=== PATIENT | female | born 1990 | race African-American/Black ===

== ENCOUNTER 2017-02-06 17:13 | Emergency (ER) | payer OTHER ==
[~2017-02-06] VITALS: Ht 165.1 cm; Wt 94.0 kg
[~2017-02-06 17:13] MED LIST: PREN-88 PO
[2017-02-06] MEDS ORDERED: KETOROLAC 60MG/2ML VIAL IM ONE (18:30)
[2017-02-06] MEDS ORDERED: ACETAMINOPHEN 500MG TABLET PO ONE (18:30)
[2017-02-06] MEDS ORDERED: DEXAMETHASONE 10MG/ML 1ML VIAL IM ONE (18:30)
[2017-02-06 19:52] VITALS: BP 120/76
== END 2017-02-06 20:15 | disposition home or self-care (01) ==
LOC: ER 17:13
DX: J02.8 Acute pharyngitis due to other specified organisms (principal); B96.89 Other specified bacterial agents as the cause of diseases classified elsewhere; B30.9 Viral conjunctivitis, unspecified; Z88.0 Allergy status to penicillin
CPT/HCPCS: 81025; 96372; 99284; J1100; J1885; Z7610

== ENCOUNTER 2017-05-28 15:20 | Emergency (ER) | payer OTHER ==
[~2017-05-28] VITALS: Ht 165.1 cm; Wt 86.0 kg
[2017-05-28 18:49] VITALS: BP 120/60
== END 2017-05-28 19:00 | disposition home or self-care (01) ==
LOC: ER 16:06
DX: J06.9 Acute upper respiratory infection, unspecified (principal); Z88.0 Allergy status to penicillin
CPT/HCPCS: 99282

== ENCOUNTER 2019-01-15 22:33 | Observation (INO) | payer OTHER ==
[~2019-01-15] VITALS: Ht 165.1 cm; Wt 110.2 kg
[2019-01-15] MEDS ORDERED: FERROUS SULFATE (23:44)
[2019-01-15] MEDS ORDERED: PRENATAL VITAMIN (23:44)
== END 2019-01-16 00:35 | disposition home or self-care (01) ==
LOC: 8 EST LDRP 22:33
PROVIDERS: ADMIT Specialist; ATTEND Specialist
DX: O26.893 Other specified pregnancy related conditions, third trimester (principal); M54.5 Low back pain; O99.513 Diseases of the respiratory system complicating pregnancy, third trimester; R06.02 Shortness of breath; O99.713 Diseases of the skin and subcutaneous tissue complicating pregnancy, third trimester; R20.2 Paresthesia of skin; Z3A.40 40 weeks gestation of pregnancy
CPT/HCPCS: 99281; G0378

== ENCOUNTER 2019-01-25 18:50 | Inpatient (IN) | payer OTHER ==
[~2019-01-25] VITALS: Ht 165.1 cm; Wt 111.1 kg
[~2019-01-25 18:50] MED LIST changes: +FERROUS SULFATE; -PREN-88 PO; +PRENATAL VITAMIN
[2019-01-25] MEDS ORDERED: DEXT 5%/LACTATED RINGERS 1,000 ML IV SCH (19:19)
[2019-01-25] MEDS ORDERED: NALOXONE HCL 0.4 MG/ML 1ML VIAL IM PRN (19:30)
[2019-01-25 20:06] LABS: BASOPHILS % 0.7 % (0.0-2.0); EOSINOPHILS % 0.2 % (0.0-5.0); HEMATOCRIT. 35.7 % (36.0-48.0); HEMOGLOBIN. 11.6 g/dL (12.0-16.0); LYMPHOCYTES % 27.5 % (20.0-50.0); MEAN CORPUSCULAR HEMOGLOBIN 28.8 pg (28.0-32.0); MEAN CORPUSCULAR VOLUME 88.5 fL (81.0-99.0); MEAN PLATELET VOLUME 8.2 fl (7.4-10.4); MONOCYTES % 6.9 % (2.0-8.0); NEUTROPHILS % 64.7 % (40.0-76.0); PLATELET 376 x1000/uL (130-400); RED BLOOD CELL COUNT 4.04 mill/uL (4.2-5.4); RED CELL DISTRIBUTION WIDTH 14.5 % (11.6-14.6)
[2019-01-25 20:13] LABS: INR 0.9; PARTIAL THROMBOPLASTIN TIME 27.9 sec (23.4-31.0)
[2019-01-25] MEDS ORDERED: DEXT 5%/LR + PITOCIN 20UNITS/L 1,000 ML IV SCH (20:30)
[2019-01-25] MEDS ORDERED: CITRIC ACID/SODIUM CITRATE SOLN 30ML UDC PO NR ×2 (20:30→22:00)
[2019-01-25] MEDS: LACTATED RINGERS 1,000 ML IV SCH (20:52)
[2019-01-25] MEDS ORDERED: FENTANYL CITRATE/PF 50MCG/ML 2ML VIAL ONE (22:02)
[2019-01-25] MEDS ORDERED: MORPHINE SULFATE/PF 1MG/ML 10ML AMP ONE (22:03)
[2019-01-25] MEDS ORDERED: BUPIVACAINE HCL/DEXTROSE/PF 0.75% 2ML AMP INJ ONE (22:03)
[2019-01-25] MEDS ORDERED: ONDANSETRON HCL 4MG/2ML INJ ONE (22:08)
[2019-01-25] MEDS ORDERED: CLINDAMYCIN 900 MG PREMIX 50 ML IV ONE (22:09)
[2019-01-25 22:12] LABS: *AMPHETAMINES SCREEN URINE NEGATIVE (NEGATIVE); *BARBITURATES SCREEN URINE NEGATIVE (NEGATIVE); *BENZODIAZEPINES SCREEN URINE NEGATIVE (NEGATIVE); *COCAINE SCREEN URINE NEGATIVE (NEGATIVE); METHADONE URINE SCREEN NEGATIVE (NEGATIVE); OPIATES URINE SCREEN NEGATIVE (NEGATIVE)
[2019-01-25 22:13] LABS: CANNABINOID URINE SCREEN NEGATIVE (NEGATIVE); PHENCYCLIDINE URINE SCREEN NEGATIVE (NEGATIVE)
[2019-01-25] MEDS ORDERED: OXYTOCIN 10 UNITS/ML 1ML ONE (22:28)
[2019-01-25] MEDS ORDERED: GLYCOPYRROLATE 0.2 MG/ML 2ML VIAL ONE (22:54)
[2019-01-25] MEDS ORDERED: ATROPINE SULFATE 1MG/10ML SYR ONE (22:54)
[2019-01-25] MEDS ORDERED: KETOROLAC 60MG/2ML VIAL IM ONE (23:15)
[2019-01-26] VITALS (7 sets, daily range): BP systolic 101–120; BP diastolic 50–73
[2019-01-26] MEDS ORDERED: DIPHENHYDRAMINE 50MG/ML VIAL IV PRN (00:15)
[2019-01-26] MEDS ORDERED: BUTORPHANOL TARTRATE 2 MG/ML VIAL IV PRN (00:15)
[2019-01-26] MEDS ORDERED: KETOROLAC 30MG/ML VIAL IV PRN (00:15)
[2019-01-26] MEDS ORDERED: NALOXONE HCL 0.4 MG/ML 1ML VIAL IV PRN (00:15)
[2019-01-26] MEDS ORDERED: BUTORPHANOL TARTRATE 2 MG/ML VIAL IM PRN (00:15)
[2019-01-26] MEDS: LACTATED RINGERS 1,000 ML IV SCH (10:34)
[2019-01-26 13:41] LABS: HEPATITIS B SURFACE ANTIGEN NEGATIVE
[2019-01-27] MEDS ORDERED: IBUPROFEN 400MG TABLET PO PRN (01:30)
[2019-01-27] MEDS: IBUPROFEN 800MG TABLET PO PRN ×3 (01:34→22:05)
[2019-01-27 03:45] VITALS: BP 117/62
[2019-01-27 06:58] LABS: BASOPHILS % 0.3 % (0.0-2.0); EOSINOPHILS % 0.3 % (0.0-5.0); HEMATOCRIT. 28.2 % (36.0-48.0); HEMOGLOBIN. 9.2 g/dL (12.0-16.0); LYMPHOCYTES % 21.1 % (20.0-50.0); MEAN CORPUSCULAR HEMOGLOBIN 29.1 pg (28.0-32.0); MEAN CORPUSCULAR VOLUME 88.9 fL (81.0-99.0); MEAN PLATELET VOLUME 8.1 fl (7.4-10.4); MONOCYTES % 8.9 % (2.0-8.0); NEUTROPHILS % 69.4 % (40.0-76.0); PLATELET 322 x1000/uL (130-400); RED BLOOD CELL COUNT 3.17 mill/uL (4.2-5.4); RED CELL DISTRIBUTION WIDTH 14.8 % (11.6-14.6)
[2019-01-27 07:30] VITALS: BP 111/69
[2019-01-27] MEDS: BISACODYL 10MG SUPP PR SCH ×3 (08:00→22:00)
[2019-01-27 16:00] VITALS: BP 109/59
[2019-01-27 20:00] VITALS: BP 122/78
[2019-01-27] MEDS ORDERED: DOCUSATE SODIUM 100MG CAPSULE PO PRN (20:45)
[2019-01-27] MEDS: SIMETHICONE 80MG TABLET CHEW PO PRN (22:07)
[2019-01-28 00:26] VITALS: BP 119/68
[2019-01-28] MEDS: IBUPROFEN 800MG TABLET PO PRN ×2 (05:23→11:59)
[2019-01-28] MEDS: SIMETHICONE 80MG TABLET CHEW PO PRN ×2 (05:24→08:22)
[2019-01-28 07:30] VITALS: BP 112/64
== END 2019-01-28 13:00 | disposition home or self-care (01) | DRG 540 ==
LOC: OBSVTOIN 18:50 → INTOOBSV 18:50 → 8 EST LDRP 18:50 → 8EST 01-26 00:33
PROVIDERS: ADMIT Specialist; ATTEND Specialist
PROC: 10D00Z1 Extraction of Products of Conception, Low, Open Approach (ICD-10-PCS; principal; 2019-01-25)
DX: O69.81X0 Labor and delivery complicated by cord around neck, without compression, not applicable or unspecified (principal); O34.211 Maternal care for low transverse scar from previous cesarean delivery; Z37.0 Single live birth; Z88.0 Allergy status to penicillin; Z3A.40 40 weeks gestation of pregnancy
CPT/HCPCS: 36415; 80305; 82947; 86592; 86762; 86850; 86900; 87340; 88307; 99281; G0378; J0461; J1200; J1885; J2274; J2405; J2590; J3010; J3490; J7121